=== PATIENT | male | born 1985 | race Caucasian/White ===

== ENCOUNTER 2019-03-16 20:00 | Emergency (ER) | payer MEDICAID ==
[~2019-03-16] VITALS: Ht 172.7 cm; Wt 117.9 kg
[2019-03-16 21:30] VITALS: BP_SYST 159
[2019-03-16] MEDS ORDERED: LIP20 PO (21:59)
--- NOTE | 2019-03-16 23:18 | NUR ---
Patient to ER bed 08 to gown for evaluation. Side rails up. Report given to RACHEAL Caputo
[2019-03-16] MEDS ORDERED: MAG HYDROX/AL HYDROX/SIMETH 30 ML, DICYCLOMINE HCL 20 MG, LIDOCAINE VISCOUS 2% 15ML (PO... PO ONE ×3 (23:45)
--- NOTE | 2019-03-17 | NUR ---
Dr. Borrero bedside for Pt eval
--- NOTE | 2019-03-17 00:20 | NUR ---
Pt BIB family to ED C/O gradual onset, intermittent abdominal pain/back pain with associated vomiting and diarrhea since this morning. Pain is moderate, nonradiating. No exacerbating factors. Patient reports of an episode of nonbloody emesis and nonbloody diarrhea today. Patient notes vomiting has resolved, but believes diarrhea might reoccur VSS no s/s of acute distress Resting on gurney rails up
[2019-03-17 00:24] LABS: BASOPHILS % (AUTO) 0.4 % (0.0-2.0); EOSINOPHILS % (AUTO) 0.1 % (0.0-4.0); HEMATOCRIT 46.4 % (36-54); HEMOGLOBIN 15.5 g/dL (14.0-18.0); LYMPHOCYTES % (AUTO) 10.2 % (20.5-51.5); MEAN CORPUSCULAR HEMOGLOBIN 29 pg (27-31); MEAN CORPUSCULAR HGB CONC 33 % (32-36); MEAN CORPUSCULAR VOLUME 87 fL (79.0-98.0); MONOCYTES # (AUTO) 0.4 K/uL (0.0-1.0); MONOCYTES % (AUTO) 4.2 % (1.7-9.3); NEUTROPHILS % (AUTO) 85.1 % (40.0-70.0); PLATELET COUNT (AUTO) 274 K/uL (130-430); RED BLOOD CELL COUNT(AUTO) 5.36 MIL/uL (4.2-6.2); RED CELL DISTRIBUTION WIDTH 13.4 % (9.0-15.0); WHITE BLOOD COUNT (AUTO) 9.4 K/uL (4.8-10.8)
[2019-03-17 00:33] LABS: CALCIUM 8.7 mg/dL (8.4-11.0); CREATININE 0.6 mg/dL (0.55-1.30); POTASSIUM 3.6 mmol/L (3.5-5.1)
[2019-03-17 00:38] LABS: ALBUMIN 3.8 g/dL (3.4-4.8); TOTAL BILIRUBIN 0.9 mg/dL (0.0-1.0)
[2019-03-17] MEDS ORDERED: KETOROLAC TROMETHAMINE 30 MG VIAL IM ONE (01:30)
--- NOTE | 2019-03-17 01:30 | NUR ---
Pt taken to Radiology in stable condition
--- NOTE | 2019-03-17 01:40 | NUR ---
Pt back from Radiology, well tolerated
[2019-03-17 02:50] VITALS: BP_SYST 142
--- NOTE | 2019-03-17 02:50 | NUR ---
Patient given written and verbal discharge instructions and verbalizes understanding. ER MD discussed with patient the results and treatment provided. Patient in stable condition. ID arm band removed. Rx of Bentyl and Mylanta given. Patient educated on pain management and to follow up with PMD. Pain Scale 0/10 Opportunity for questions provided and answered. Medication side effect fact sheet provided.
== END 2019-03-17 02:50 | disposition home or self-care (01) ==
LOC: SED 20:00
DX: R10.13 Epigastric pain (principal); R11.10 Vomiting, unspecified; E78.00 Pure hypercholesterolemia, unspecified; Z88.8 Allergy status to other drugs, medicaments and biological substances
CPT/HCPCS: 36415; 74176; 80053; 83690; 85025; 96372; 99283; J1885; J2001